=== PATIENT | female | born 1955 | race Caucasian/White ===

== ENCOUNTER 2020-07-14 15:23 | Outpatient (CLI) | payer OTHER, SELFPAY ==
--- NOTE | ~2020-07-14 | DEXA_ITS ---
Bone Density Report Name: Yulissa Quiroz Age: 64 Sex: Female Ethnicity: White Date of : 1955 Indication: postmenopausal; history of glucocorticoids; Referring Provider: FELICITAS TRAORE Study: Bone densitometry was performed. Exam Date: July 14, 2020 Accession number: [id number] Bone Density: Region BMD T-score Z-score Classification AP Spine (L1-L4) 1.129 0.7 2.4 Normal Femoral Neck (Left) 0.727 -1.1 0.3 Osteopenia Total Hip (Left) 0.906 -0.3 0.8 Normal Total Hip Bilateral Avg 0.911 -0.3 0.8 Normal Femoral Neck (Right) 0.815 -0.3 1.1 Normal Total Hip (Right) 0.915 -0.2 0.9 Normal World Health Organization criteria for BMD impression classify patients as: Normal (T-score at or above -1.0), Osteopenia (T-score between -1.0 and -2.5), or Osteoporosis (T-score at or below -2.5). 10-year Fracture Risk(1): Major Osteoporotic Fracture 11% Hip Fracture 0.9% Reported Risk Factors: [place] (), Neck BMD=0.727, BMI=35.7, glucocorticoids (1) FRAX(R) Version 3.08. Fracture probability calculated for an untreated patient. Fracture probability may be lower if the patient has received treatment. Previous Exams: Region Exam Age BMD T-score BMD Change BMD Change Date g/cm2 vs Baseline vs Previous AP Spine(L1-L4) 07/14/2020 64 1.129 0.7 0.003(0.3%) 0.003(0.3%) 12/15/2014 59 1.125 0.7 Total Hip(Left) 07/14/2020 64 0.906 -0.3 -0.105(-10.4%) -0.105(-10.4%) 12/15/2014 59 1.011 0.6 Total Hip(Right) 07/14/2020 64 0.915 -0.2 -0.074(-7.5%)* -0.074(-7.5%)* 12/15/2014 59 0.989 0.4 *Denotes significance at 95% confidence level, LSC for AP Spine = 0.022 g/cm2, LSC for Total Hip = 0.027 g/cm2 Clinical Information Provided by Patient: Has taken Glucocorticoids Has used the following medications: Vitamin D, Calcium Patient maximum height was 64 Menopause Age: 41 Drinks caffeinated beverages Onset of menses at age 14 Number of children 2 Impression: The patient has low bone mass, based on the Left Femoral Neck T-score. The patient has an estimated ten-year risk of hip fracture of 0.9% and an estimated ten-year risk of major fracture of 11%, based on the WHO FRAX algorithm. The patient has risk factors, including: history of glucocorticoid therapy. The BMD for the Total Hip(Left) decreased, changing by -10.4% since the last DXA exam. The BMD for the Total Hip(Right) decreased, changing by -7.5% since the last DXA exam.
--- NOTE | ~2020-07-14 | MM_ITS ---
EXAMINATION: MM screening [facility] BI w epi HISTORY: Screening TECHNIQUE: Craniocaudal and mediolateral oblique 3-D tomosynthesis images were obtained and synthetic 2-D images were generated. CAD analysis was submitted and interpreted. COMPARISON: Comparison to multiple prior studies sequentially, with oldest reviewed study dated 11/27. BREAST PARENCHYMAL COMPOSITION: There are scattered areas of fibroglandular density. FINDINGS: There is no evidence of suspicious mass, calcification, or architectural distortion to sugg est malignancy in either breast. There has been no suspicious interval change. IMPRESSION: 1. No mammographic evidence of malignancy. 2. Recommend routine screening mammography in one year. BI-RADS Category 1: Negative Reviewed, dictated and finalized at location A.
== END 2020-07-14 15:24 | disposition home or self-care (01) ==
LOC: ANHIMG 15:30
PROVIDERS: Visit Provider Obstetrics & Gynecology
DX: Z12.31 Encounter for screening mammogram for malignant neoplasm of breast (principal); Z78.0 Asymptomatic menopausal state
CPT/HCPCS: 77063; 77067; 77080